=== PATIENT | male | born 1965 | race Caucasian/White ===

== ENCOUNTER 2024-01-27 05:39 | Observation (INO) | payer BC ==
[2024-01-25 10:38] LABS: BASOPHILS % 0.4 % (0.0-1.0); EOSINOPHILS # (AUTO) 1.4 (0.0-0.4); EOSINOPHILS % 18.9 % (0.0-6.0); HEMATOCRIT 45.9 % (38.2-49.6); HEMOGLOBIN 15.9 g/dL (14.0-18.0); LYMPHOCYTES # (AUTO) 2.2 (1.0-3.2); LYMPHOCYTES % 29.1 % (18.0-39.1); MEAN CORPUSCULAR HEMOGLOBIN 32.4 pg (28-32); MEAN CORPUSCULAR HGB CONC 34.6 g/dL (31-35); MEAN CORPUSCULAR VOLUME 93.5 fL (81-99); MONOCYTES # (AUTO) 0.5 (0.2-0.8); MONOCYTES % 6.7 % (4.4-11.3); NEUTROPHILS # (AUTO) 3.3 (2.1-6.9); NEUTROPHILS % 44.5 % (38.7-80.0); PLATELET COUNT 126 x10e3/uL (140-360); RED BLOOD COUNT 4.91 x10e6/uL (4.3-5.7); RED CELL DISTRIBUTION WIDTH 12.3 % (11.7-14.4); WHITE BLOOD COUNT 7.41 x10e3/uL (4.8-10.8)
[2024-01-25 10:51] LABS: ANION GAP 13.8 mmol/L (8-16); CALCIUM 9.6 mg/dL (8.4-10.2); CREATININE, SERUM 0.93 mg/dL (0.72-1.25); POTASSIUM 4.8 mmol/L (3.5-5.1)
[2024-01-25 10:55] LABS: INR 1.02; PROTHROMBIN TIME 14.1 seconds (11.9-14.5)
[2024-01-25 10:56] LABS: PARTIAL THROMBOPLASTIN TIME 31.6 seconds (23.8-35.5)
[~2024-01-27] VITALS: Ht 188 cm; Wt 116.6 kg
[~2024-01-27 05:39] MED LIST: FLECAINIDE ACE100 MG PO; HYDROCODON-ACE1 EA10 PO; METOPROLOL SUCC25 MG PO
[2024-01-27] MEDS: CEFAZOLIN SODIUM 2 GM ONE (05:47)
[2024-01-27] MEDS: LACTATED RINGER'S 1,000 ML ONE (05:47)
[2024-01-27] MEDS ORDERED: LIDOCAINE 1% W/EPINEPHRINE 20 ML VIAL ONE (06:57)
[2024-01-27] MEDS ORDERED: THROMBIN FOR SOLN 5,000 UNIT VIAL ONE (06:57)
[2024-01-27] MEDS ORDERED: Vancomycin IV 1 GM VIAL ONE (06:57)
[2024-01-27] MEDS: FENTANYL CITRATE/PF 100MCG/2 ML INJ IV ONE ×4 (09:10→09:25)
[2024-01-27] MEDS ORDERED: Morphine 10mg syringe 10 MG/ML INJ IM PRN (09:15)
[2024-01-27] MEDS ORDERED: HYDROMORPHONE 2MG/ML IV PRN (09:15)
[2024-01-27] MEDS ORDERED: ZOLPIDEM TARTRATE 5 MG TAB PO PRN (09:15)
[2024-01-27] MEDS ORDERED: ONDANSETRON HCL INJ 2MG/ML 2ML 2 MG/ML VIAL IV PRN (09:15)
[2024-01-27] MEDS ORDERED: MAGNESIUM/ALUMINUM/SIMETHICONE 30 ML UDC PO PRN (09:15)
[2024-01-27] MEDS ORDERED: PROMETHAZINE HCL (IM) 25 MG/ML VIAL IM PRN (09:15)
[2024-01-27] MEDS: FENTANYL CITRATE/PF 100MCG/2 ML INJ ONE (10:01)
[2024-01-27 10:10] VITALS: BP 133/90; PULSE 82; RESP 16; TEMP 97.8; O2SAT 97
[2024-01-27 10:11] VITALS: BP 133/90; PULSE 82; RESP 16; TEMP 97.8; O2SAT 97
[2024-01-27 10:15] VITALS: BP 133/90; PULSE 82; RESP 16; TEMP 97.8; O2SAT 97
[2024-01-27] MEDS: LACTATED RINGER'S 1,000 ML IV SCH (10:40)
[2024-01-27] MEDS: OXYCODONE/ACETAMINOPHEN 5-325 1 EACH TABLET PO PRN (10:41)
[2024-01-27] MEDS ORDERED: SEVOFLURANE INHAL SOLN 250 ML PEN BTL ONE (12:34)
[2024-01-27] MEDS ORDERED: ONDANSETRON HCL INJ 2MG/ML 2ML 2 MG/ML VIAL ONE (12:34)
[2024-01-27] MEDS ORDERED: ROCURONIUM BROMIDE 10 MG/ML 5ML VIAL IV ONE (12:34)
[2024-01-27] MEDS ORDERED: LIDOCAINE HCL (LTA) 4 ML SOLN ONE (12:34)
[2024-01-27] MEDS ORDERED: PHENYLEPHRINE HCL 1% 10 MG/ML VIAL ONE (12:34)
[2024-01-27] MEDS ORDERED: DEXAMETHASONE SOD PHOS 10 MG/1 ML VIAL ONE (12:34)
[2024-01-27] MEDS ORDERED: PROPOFOL IV EMULSION 10 MG/ML 20 ML VIAL ONE (12:34)
[2024-01-27] MEDS ORDERED: DEXMEDETOMIDINE HCL 200 MCG/2 ML VIAL ONE (12:34)
[2024-01-27] MEDS ORDERED: EPHEDRINE SULFATE INJ 50 MG/ML VIAL ONE (12:34)
[2024-01-27] MEDS ORDERED: SUGAMMADEX SODIUM 200 MG/2 ML VIAL IV ONE (12:34)
[2024-01-27] MEDS ORDERED: LIDOCAINE HCL 2% LOCAL INJ 5 ML SDV VIAL INJ ONE (12:34)
[2024-01-27] MEDS ORDERED: KETAMINE 50MG/5ML SYR ONE (12:34)
[2024-01-27] MEDS ORDERED: ACETAMINOPHEN 1000 MG/100 ML IV ONE (12:34)
[2024-01-27] MEDS ORDERED: FENTANYL CITRATE/PF 100MCG/2 ML INJ ONE (13:00)
[2024-01-27] MEDS ORDERED: MIDAZOLAM HCL 2 MG/2 ML VIAL ONE (13:00)
[2024-01-27] MEDS: ACETAMINOPHEN 325 MG TAB PO PRN (13:10)
[2024-01-27] MEDS: CARISOPRODOL 350 MG TAB PO PRN (13:10)
[2024-01-27 15:06] VITALS: BP 137/86; PULSE 89; RESP 18; TEMP 98.2; O2SAT 97
[2024-01-27] MEDS: FLECAINIDE ACETATE 100 MG TAB PO SCH (16:11)
[2024-01-27 20:00] VITALS: BP 142/83; PULSE 80; PULSE 94; RESP 18; TEMP 98.2; O2SAT 98
[2024-01-27] MEDS: METOPROLOL SUCCINATE 25 MG TAB XL PO SCH (21:29)
[2024-01-28] VITALS: BP 120/70; PULSE 88; RESP 18; TEMP 98.6; O2SAT 95
[2024-01-28 02:33] VITALS: BP 120/70; PULSE 88; RESP 18; TEMP 98.6; O2SAT 95
[2024-01-28 04:54] VITALS: BP 135/80; PULSE 84; RESP 18; TEMP 97.3; O2SAT 100
[2024-01-28 08:03] VITALS: BP 127/80; PULSE 80; RESP 18; TEMP 98; O2SAT 100
[2024-01-28 08:05] VITALS: BP 127/80; PULSE 80; RESP 18; TEMP 98; O2SAT 100
[2024-01-28] MEDS ORDERED: ONDANSETRON HCL 4 MG ORAL DISINTEGRATING TAB PO PRN (10:15)
== END 2024-01-28 10:50 | disposition home or self-care (01) ==
LOC: OR 05:39 → PACU V 09:04 → MED/SURG 10:09
PROVIDERS: ADMIT Neurological Surgery; ATTEND Neurological Surgery
DX: M50.123 Cervical disc disorder at C6-C7 level with radiculopathy (principal); Z01.810 Encounter for preprocedural cardiovascular examination; Z01.812 Encounter for preprocedural laboratory examination; Z01.818 Encounter for other preprocedural examination; I10 Essential (primary) hypertension; G89.29 Other chronic pain; E66.01 Morbid (severe) obesity due to excess calories; Z68.33 Body mass index [BMI] 33.0-33.9, adult; M26.609 Unspecified temporomandibular joint disorder, unspecified side
CPT/HCPCS: 20931; 22551; 22845; 36415; 71046; 72040; 76000; 80048; 85025; 85610; 85730; 86850; 86900; 88304; 88311; 93005; C1713 ×2; G0378 ×2; J0131; J0690 ×2; J1100; J2001; J2250; J2371; J2405; J2704; J3010; J3370; J7121

== ENCOUNTER 2024-01-31 06:24 | Emergency (ER) | payer BC ==
[~2024-01-31] VITALS: Ht 188 cm; Wt 116.6 kg
[2024-01-31 06:37] VITALS: PULSE 80; RESP 20; TEMP 98.3
[2024-01-31] MEDS: Morphine 4mg INJECTION 4 MG/ML INJ IV ONE ×2 (06:52→08:31)
[2024-01-31] MEDS: ONDANSETRON HCL INJ 2MG/ML 2ML 2 MG/ML VIAL IV STA (06:52)
[2024-01-31] MEDS: KETOROLAC TROMETHAMINE 30 MG/ML VIAL IV STA (07:16)
[2024-01-31] MEDS: PREDNISONE 20 MG TAB PO ONE (07:16)
[2024-01-31] MEDS ORDERED: DEXAMETHASONE4 MG PO (08:20)
[2024-01-31 08:37] VITALS: BP 148/87; PULSE 76; RESP 17; O2SAT 100
== END 2024-01-31 08:40 | disposition home or self-care (01) ==
LOC: ER 06:38
DX: M54.2 Cervicalgia (principal); M54.12 Radiculopathy, cervical region; I10 Essential (primary) hypertension
CPT/HCPCS: 72040; 99284; J1885; J2270; J2405; J7512